=== PATIENT | male | born 1970 | race Caucasian/White ===

== ENCOUNTER 2018-04-27 | Inpatient (IN) | payer OTHER ==
[~2018-04-27] MED LIST: ADVAIR 250/501 EA INH; VENTOLIN0.09 MG/AC IH
--- NOTE | ~2018-04-27 | EKG ---
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
--- NOTE | ~2018-04-27 | EKG ---
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
--- NOTE | ~2018-04-27 | PR ---
[place], [place] PROGRESS NOTE NAME: MARY STEIN UNIT #: [id number] ROOM: [facility] DOCTOR: RASHARD ROMEO MD BIRTHDATE: [birth year] DOS: 04/29/2018 CARDIOLOGY PROGRESS NOTE SUBJECTIVE: The patient was seen today 04/29/2018 in the Cardiology Department just prior to A stress test. He is a 47-year-old man who presented to the hospital with lightheadedness, syncope and chest pain. In the hospital, his electrocardiograms have shown no acute changes, but he does have a transient minimal elevation in troponin. He currently feels well. PHYSICAL EXAMINATION: VITAL SIGNS: Today, his pulse is 70 and regular, blood pressure 120/78. He is afebrile. NECK: Supple. He has no jugular distention. Carotids are full. LUNGS: Respirations are unlabored. His chest is clear to auscultation and percussion. He has no presacral edema or chest wall tenderness. HEART: Has a regular rhythm with a soft S4 gallop, but no S3 or murmur. The PMI is not displaced. There is no precordial heave, lift or thrill. ABDOMEN: Soft and normally active. EXTREMITIES: Showed no edema. IMPRESSION: 1. Atypical chest pain with syncope, most likely this was a vasovagal event. 2. Hypotension, possibly due to poor oral intake and dehydration. This has apparently resolved. 3. Minimal elevation in troponin, most likely due to a type 2 myocardial injury from hypotension. PLAN: We will complete the patient's workup today with an exercise stress test and myocardial perfusion imaging. If that looks good, then no further testing will be required. I thank the hospitalist physicians for asking our advice regarding his care. [place], [place] PROGRESS NOTE NAME: MARY STEIN UNIT #: [id number] ROOM: [facility] DOCTOR: RASHARD ROMEO MD BIRTHDATE: [birth year] RASHARD ROMEO MD CM:PNTRANS [id number] RASHARD ROMEO MD 04/30/18 0338 interface
--- NOTE | ~2018-04-27 | EKG ---
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
--- NOTE | ~2018-04-27 | CON ---
[place], [place] REPORT OF CONSULTATION NAME: MARY STEIN UNIT #: [id number] ROOM: [facility] DOCTOR: RASHARD ROMEO MD BIRTHDATE: [birth year] DOS: 04/28/2018 CARDIOLOGY CONSULTATION CHIEF COMPLAINT: Chest discomfort and syncope. HISTORY OF PRESENT ILLNESS: The patient is a 47-year-old man who reportedly does have a history of high functioning autism. He is a very poor historian. He states that he has had allergy problems in the past including swelling of his tongue. He has also had lightheadedness and syncope in the past. He is not sure if he has ever had a heart problem, but he thinks that he might have had a heart problem a few years ago. He cannot give me any details of this. For the past few days, he has felt poorly. He states that he has not been eating and he has not been sleeping well. He has had constant sneezing and he has had a headache. Yesterday while he was at work at the [employer] he felt lightheaded. He was able to get a ride home with his brother and [id number]. While there, he began to feel a pressure-like pain in the left side of his chest and epigastrium. He then felt lightheaded and passed out. His [id number] stated that he was in and out of consciousness a few times. He did feel his heart was beating erratically and he did feel sweaty. He also complained of a deep nonradiating epigastric pain, which he states was from hunger. Because of these symptoms, he was brought to the Emergency Room and admitted. PAST MEDICAL HISTORY: Includes: 1. High functioning autism. 2. Long-term and ongoing tobacco abuse. 3. Tonsillectomy. 4. Seasonal allergies. FAMILY HISTORY: The patient is unaware of his father's health. His mother is alive at age 67 and lives in [place]. REVIEW OF SYSTEMS: The patient denies diplopia or loss of vision. He has been lightheaded recently. He denies fevers, chills or sweats. He denies any recent weight change. He states that he has been eating poorly lately. He denies nausea or vomiting. He denies hemoptysis or hematemesis. He denies change in bowel or bladder habits. He denies blood in his stools or urine. He denies orthopnea or PND. He denies any peripheral edema. He denies any history of blood clots. He denies heat or cold intolerance. He denies polyuria or polydipsia. He denies any new skin rashes. Remainder of the review of systems is negative except as noted above. MEDICATIONS PRIOR TO ADMISSION: Advair Diskus inhaled daily and albuterol by metered dose inhaler p.r.n. ALLERGIES: LISTS AN ALLERGY TO SHRIMP, WHICH CAUSES SWELLING. SOCIAL HISTORY: The patient lives alone. He does have a cat in the house. He [place], [place] REPORT OF CONSULTATION NAME: MARY STEIN UNIT #: [id number] ROOM: [facility] DOCTOR: RASHARD ROMEO MD BIRTHDATE: [birth year] smokes a pack of cigarettes a day and consumes marijuana on a daily basis. Please note that his urine drug screen was positive for marijuana and amphetamines. He felt that perhaps the marijuana that he had received was laced with amphetamines because he denies taking them on his own. PHYSICAL EXAMINATION: GENERAL: The patient is a slender white male who is awake, alert and oriented. VITAL SIGNS: Pulse is 92 and regular, blood pressure is 104/66. He is afebrile. He weighs 70.4 kilograms and has a body mass index of 28.4. HEENT: Normocephalic and atraumatic. Extraocular muscles are intact. Sclerae are clear. Pupils equal, round and react to light. The oral mucosa is moist. Tongue is midline. NECK: Supple. He has no jugular distention. Carotids are full. There are no bruits. He has no neck or supraclavicular masses, no thyromegaly. LUNGS: Respirations are unlabored. His chest is clear to auscultation and percussion. He has no presacral edema or chest wall tenderness. CARDIOVASCULAR: His heart has a regular rhythm. He has a fourth heart sound, but no third heart sound or murmur. The PMI is not displaced. He has no precordial heave, lift or thrill. ABDOMEN: Soft and normally active without masses, organomegaly or bruits. EXTREMITIES: Showed no edema. Peripheral pulses are easily palpated in the feet. He does have good hair growth on his feet. I reviewed his electrocardiogram and it showed sinus tachycardia, but was otherwise normal tracing. Chest x-ray showed no acute changes with normal cardiac silhouette. Hemoglobin is 15.1, white count on admission was 20,700 and on repeat was 10,900, platelet count was 300,000. Troponin levels were minimally elevated and have fallen back to normal ranges. The peak troponin was 0.115. Sodium is 138, potassium 4.0, chloride 106, CO2 23, BUN 9, creatinine 1.02. IMPRESSION: 1. Syncope preceded by upper respiratory infection symptoms and abdominal pain along with poor oral intake. Most likely this represents a vasovagal event. 2. Hypotension, possibly due to poor oral intake, dehydration, etc. 3. Minimal elevation in troponin, most likely a type 2 myocardial injury from hypotension. PLAN: The patient has been hydrated and is currently feeling well. We will continue to follow serial enzymes and check an echocardiogram for wall motion. If he looks fine overnight, we will plan an exercise myocardial perfusion study for the next 24 hours. We will check orthostatic vital signs in the meantime. Further recommendations depend upon the results of his echo and stress test. I thank the hospitalist physicians for asking our advice regarding his care. [place], [place] REPORT OF CONSULTATION NAME: MARY STEIN UNIT #: [id number] ROOM: [facility] DOCTOR: RASHARD ROMEO MD BIRTHDATE: [birth year] RASHARD ROMEO MD CM:CONSTR:REPORT OF CONSULTATION 9 04/29/18699 interface
[2018-04-27 18:10] VITALS: BP 170/103
[2018-04-27 18:20] VITALS: BP 148/82
[2018-04-27 18:30] VITALS: BP 133/79
[2018-04-27 18:32] LABS: BASO # 0.1 10*3/uL (0.0-0.1); BASO % 0.3 % (0.0-1.0); EOS # 0.1 10*3/uL (0.0-0.4); EOS % 0.3 % (1.0-4.0); HEMATOCRIT 46.3 % (42.0-52.0); HEMOGLOBIN 16.7 g/dl (14.0-18.0); LYMPH # 3.2 10*3/uL (1.3-4.4); LYMPH % 15.3 % (27.0-41.0); MEAN CELL VOLUME 87.4 fl (80.0-94.0); MEAN CORPUSCULAR HGB 31.5 pg (27.0-31.0); MEAN CORPUSCULAR HGB CONC 36.1 g/dl (33.0-37.0); MEAN PLATELET VOLUME 9.7 fl (9.6-12.3); MONO # 1.4 10*3/uL (0.1-1.0); MONO % 6.6 % (3.0-9.0); NEUT # 15.9 10*3/uL (2.3-7.9); NEUT % 76.9 % (47.0-73.0); PLATELET COUNT AUTOMATED 411 10*3/uL (130-400); RED CELL DISTRI WIDTH 11.9 % (0-14.5); WHITE BLOOD COUNT 20.7 10*3/uL (4.8-10.8)
[2018-04-27 18:42] LABS: ACT PARTIAL THROMBO TIME 23.1 SECONDS (20.8-31.5)
[2018-04-27 18:48] LABS: ALBUMIN 4.4 gm/dl (3.1-4.5); ALKALINE PHOSPHATASE 136 U/L (45-117); BUN 12 mg/dl (7-24); CHLORIDE 99 mmol/L (98-107); CREATININE 1.59 mg/dL (0.70-1.30); POTASSIUM 2.8 mmol/L (3.5-5.1); SGOT/AST 28 IU/L (3-35); SGPT/ALT 32 U/L (12-78); SODIUM 137 mmol/L (136-145); TOTAL PROTEIN 8.2 gm/dL (6.4-8.2)
[2018-04-27 18:51] LABS: ETHYL ALCOHOL < 3.0 mg/dl (<3); TROPONIN I < 0.015 ng/ml (<0.045)
[2018-04-27 19:08] VITALS: BP 148/76
[2018-04-27 19:51] VITALS: BP 144/84
[2018-04-27 20:06] LABS: URINE AMPHETAMINES > 1000 (1000ng/ml); URINE BARBITURATES < 200 (200ng/ml); URINE BENZODIAZEPINES < 200 (200ng/ml); URINE CANNABINOIDS (THC) > 50 (50ng/ml); URINE COCAINE < 300 (300ng/ml); URINE METHADONE < 300 (300ng/ml); URINE OPIATES < 300 (300ng/ml)
[2018-04-27 20:12] LABS: URINE PHENCYCLIDINE < 25 (25ng/ml)
[2018-04-27 20:35] VITALS: BP 117/82
[2018-04-28 01:21] LABS: BILIRUBIN NEGATIVE (NEGATIVE); BLOOD NEGATIVE (NEGATIVE); CLARITY CLEAR (CLEAR); COLOR YELLOW (YELLOW); GLUCOSE NEGATIVE (NEGATIVE); KETONE NEGATIVE (NEGATIVE); LEUKO ESTERASE NEGATIVE (NEGATIVE); NITRITE NEGATIVE (NEGATIVE); PH 7.5 (5.0-9.0); UROBILINOGEN 0.2 E.U./dl (0.2-1.0)
[2018-04-28 01:28] LABS: RBC 0-2 rbc/hpf (0-2); WBC 0-2 wbc/hpf (0-5)
[2018-04-28 01:37] VITALS: BP 121/89
[2018-04-28 04:00] VITALS: BP 117/77
[2018-04-28 06:03] LABS: ALBUMIN 3.5 gm/dl (3.1-4.5); ALKALINE PHOSPHATASE 113 U/L (45-117); BUN 9 mg/dl (7-24); CHLORIDE 106 mmol/L (98-107); CHOLESTEROL 125 mg/dL (<200); CREATININE 1.02 mg/dL (0.70-1.30); PHOSPHOROUS 2.9 mg/dL (2.5-4.9); SGOT/AST 26 IU/L (3-35); SGPT/ALT 30 U/L (12-78); SODIUM 138 mmol/L (136-145); TOTAL PROTEIN 7.1 gm/dL (6.4-8.2); TRIGLYCERIDES 59 mg/dl (<150); TROPONIN I 0.036 ng/ml (<0.045); VLDL CHOLESTEROL 12 mg/dL (6-40)
[2018-04-28 06:09] LABS: BASO % 0.3 % (0.0-1.0); EOS # 0.1 10*3/uL (0.0-0.4); EOS % 1.2 % (1.0-4.0); HEMATOCRIT 43.2 % (42.0-52.0); HEMOGLOBIN 15.1 g/dl (14.0-18.0); LYMPH # 2.5 10*3/uL (1.3-4.4); LYMPH % 22.6 % (27.0-41.0); MEAN CELL VOLUME 88.3 fl (80.0-94.0); MEAN CORPUSCULAR HGB 30.9 pg (27.0-31.0); MONO # 0.8 10*3/uL (0.1-1.0); MONO % 7.1 % (3.0-9.0); NEUT # 7.5 10*3/uL (2.3-7.9); NEUT % 68.5 % (47.0-73.0); PLATELET COUNT AUTOMATED 300 10*3/uL (130-400); RED BLOOD COUNT 4.89 10*6/uL (4.50-5.90); WHITE BLOOD COUNT 10.9 10*3/uL (4.8-10.8)
[2018-04-28 06:11] LABS: HDL CHOLESTEROL 34 mg/dl (40-60); LDL CHOLESTEROL 79 mg/dL (9-159)
[2018-04-28 08:00] VITALS: BP 104/66
[2018-04-28 12:00] VITALS: BP 104/74
[2018-04-28 16:00] VITALS: BP 120/69
[2018-04-28 20:00] VITALS: BP 109/78
[2018-04-29] VITALS: BP 110/76
[2018-04-29 04:00] VITALS: BP 108/68
[2018-04-29 05:49] LABS: ALBUMIN 3.3 gm/dl (3.1-4.5); ALKALINE PHOSPHATASE 97 U/L (45-117); BUN 12 mg/dl (7-24); CHLORIDE 110 mmol/L (98-107); CREATININE 1.07 mg/dL (0.70-1.30); PHOSPHOROUS 3.9 mg/dL (2.5-4.9); POTASSIUM 4.4 mmol/L (3.5-5.1); SGOT/AST 22 IU/L (3-35); SGPT/ALT 27 U/L (12-78); SODIUM 143 mmol/L (136-145); TOTAL PROTEIN 6.5 gm/dL (6.4-8.2)
[2018-04-29 06:04] LABS: BASO % 0.5 % (0.0-1.0); EOS # 0.2 10*3/uL (0.0-0.4); EOS % 2.6 % (1.0-4.0); HEMATOCRIT 42.5 % (42.0-52.0); HEMOGLOBIN 14.7 g/dl (14.0-18.0); LYMPH # 2.9 10*3/uL (1.3-4.4); LYMPH % 38.4 % (27.0-41.0); MEAN CORPUSCULAR HGB CONC 34.6 g/dl (33.0-37.0); MEAN PLATELET VOLUME 10.3 fl (9.6-12.3); MONO # 0.6 10*3/uL (0.1-1.0); MONO % 7.3 % (3.0-9.0); NEUT # 3.9 10*3/uL (2.3-7.9); NEUT % 50.9 % (47.0-73.0); PLATELET COUNT AUTOMATED 271 10*3/uL (130-400); RED CELL DISTRI WIDTH 12.2 % (0-14.5); WHITE BLOOD COUNT 7.6 10*3/uL (4.8-10.8)
[2018-04-29 06:06] LABS: MEAN CELL VOLUME 92.4 fl (80.0-94.0)
[2018-04-29 08:00] VITALS: BP 118/80
[2018-04-29 12:00] VITALS: BP 120/78
[2018-04-29 16:00] VITALS: BP 106/71
[2018-04-29] MEDS ORDERED: D3-20002000 UNIT PO (16:08)
== END 2018-04-29 17:37 | disposition home or self-care (01) | DRG 682 ==
PROVIDERS: Emergency Medicine; Internal Medicine; Internal Medicine Nephrology; ADMIT Internal Medicine
PROC: 3E073KZ Introduction of Other Diagnostic Substance into Coronary Artery, Percutaneous Approach (ICD-10-PCS; principal; 2018-04-29)
PROC: 4A02XM4 Measurement of Cardiac Total Activity, External Approach (ICD-10-PCS; principal; 2018-04-29)
DX: N17.0 Acute kidney failure with tubular necrosis (principal); R65.11 Systemic inflammatory response syndrome (SIRS) of non-infectious origin with acute organ dysfunction; E87.2 Acidosis; F84.0 Autistic disorder; I24.8 Other forms of acute ischemic heart disease; E86.0 Dehydration; F15.10 Other stimulant abuse, uncomplicated; J06.9 Acute upper respiratory infection, unspecified; I95.9 Hypotension, unspecified; R10.9 Unspecified abdominal pain; R55 Syncope and collapse; E87.6 Hypokalemia; E83.41 Hypermagnesemia; R03.0 Elevated blood-pressure reading, without diagnosis of hypertension; F12.10 Cannabis abuse, uncomplicated; F17.210 Nicotine dependence, cigarettes, uncomplicated; I25.9 Chronic ischemic heart disease, unspecified; Z91.013 Allergy to seafood; Z82.49 Family history of ischemic heart disease and other diseases of the circulatory system; Z83.3 Family history of diabetes mellitus

== ENCOUNTER 2023-08-08 02:00 | Emergency (ER) | payer SELFPAY ==
[~2023-08-08] VITALS: Ht 165.1 cm; Wt 65.8 kg
[~2023-08-08 02:00] MED LIST changes: +D3-20002000 UNIT PO
[2023-08-08] MEDS ORDERED: Midazolam Hydrochloride 5 MG/ML VIAL INH ONE (02:10)
[2023-08-08 02:26] LABS: BASO % 0.2 % (0.0-1.0); EOS % 0.1 % (1.0-4.0); HEMATOCRIT 41.9 % (42.0-52.0); LYMPH # 1.3 10*3/uL (1.3-4.4); LYMPH % 9.3 % (27.0-41.0); MEAN CELL VOLUME 87.1 fl (80.0-94.0); MEAN CORPUSCULAR HGB 31.2 pg (27.0-31.0); MEAN CORPUSCULAR HGB CONC 35.8 g/dl (33.0-37.0); MEAN PLATELET VOLUME 9.7 fl (9.6-12.3); MONO # 0.7 10*3/uL (0.1-1.0); MONO % 4.7 % (3.0-9.0); NEUT # 12.2 10*3/uL (2.3-7.9); NEUT % 85.3 % (47.0-73.0); PLATELET COUNT AUTOMATED 384 10*3/uL (130-400); RED BLOOD COUNT 4.81 10*6/uL (4.50-5.90); RED CELL DISTRI WIDTH 11.8 % (0-14.5); WHITE BLOOD COUNT 14.2 10*3/uL (4.8-10.8)
[2023-08-08 03:01] LABS: ALKALINE PHOSPHATASE 111 U/L (46-116); BUN 12 mg/dl (9-23); CHLORIDE 103 mmol/L (98-107); POTASSIUM 3.2 mmol/L (3.4-5.1); SGPT/ALT 51 U/L (5-49); TOTAL PROTEIN 7.4 gm/dL (6.0-8.0)
[2023-08-08 03:02] LABS: BILIRUBIN Negative (Negative); BLOOD Negative (Negative); CLARITY Cloudy (Clear); COLOR Dark Yellow (Yellow); GLUCOSE Negative (Negative); KETONE Trace (Negative); LEUKO ESTERASE Negative (Negative); NITRITE Negative (Negative); SPECIFIC GRAVITY >= 1.030 (1.001-1.030)
[2023-08-08 03:03] LABS: ETHYL ALCOHOL < 3.0 mg/dl (<3)
[2023-08-08 03:10] LABS: URINE AMPHETAMINES Positive (1000ng/ml); URINE BARBITURATES Negative (200ng/ml); URINE BENZODIAZEPINES Positive (200ng/ml); URINE CANNABINOIDS (THC) Positive (50ng/ml); URINE COCAINE Negative (300ng/ml); URINE METHADONE Negative (300ng/ml); URINE OPIATES Negative (300ng/ml); URINE PHENCYCLIDINE Negative (25ng/ml)
[2023-08-08 03:18] LABS: WBC 0-2 wbc/hpf (0-5)
[2023-08-08] MEDS ORDERED: Haloperidol Lactate 5 MG/ML AMP IM ONE (12:55)
== END 2023-08-08 14:51 | disposition home or self-care (01) ==
LOC: ED 02:00
PROVIDERS: Emergency Medicine; Student in an Organized Health Care Education/Training Program
DX: F22 Delusional disorders (principal); E87.6 Hypokalemia; F15.10 Other stimulant abuse, uncomplicated; I10 Essential (primary) hypertension; E83.41 Hypermagnesemia; I25.2 Old myocardial infarction; J45.909 Unspecified asthma, uncomplicated; M10.9 Gout, unspecified; F41.9 Anxiety disorder, unspecified; Z91.013 Allergy to seafood; F17.200 Nicotine dependence, unspecified, uncomplicated; Z90.89 Acquired absence of other organs; F12.10 Cannabis abuse, uncomplicated

== ENCOUNTER 2023-08-27 18:37 | Emergency (ER) | payer OTHER ==
[2023-08-27] MEDS ORDERED: Naloxone Hydrochloride 2 MG/2 ML SYR ONE (18:49)
[2023-08-27 19:08] LABS: BASO % 0.2 % (0.0-1.0); EOS % 0.1 % (1.0-4.0); HEMATOCRIT 43.3 % (42.0-52.0); LYMPH # 1.3 10*3/uL (1.3-4.4); MEAN CELL VOLUME 85.7 fl (80.0-94.0); MEAN CORPUSCULAR HGB 31.1 pg (27.0-31.0); MEAN CORPUSCULAR HGB CONC 36.3 g/dl (33.0-37.0); MEAN PLATELET VOLUME 9.6 fl (9.6-12.3); MONO # 0.7 10*3/uL (0.1-1.0); MONO % 4.3 % (3.0-9.0); PLATELET COUNT AUTOMATED 515 10*3/uL (130-400); RED BLOOD COUNT 5.05 10*6/uL (4.50-5.90); RED CELL DISTRI WIDTH 11.6 % (0-14.5); WHITE BLOOD COUNT 16.2 10*3/uL (4.8-10.8)
[2023-08-27 19:17] LABS: ACT PARTIAL THROMBO TIME 27.3 SECONDS (20.0-32.1)
[2023-08-27 19:36] LABS: ALKALINE PHOSPHATASE 142 U/L (46-116); BUN 12 mg/dl (9-23); CHLORIDE 104 mmol/L (98-107); LIPASE 34 U/L (12-53); POTASSIUM 3.6 mmol/L (3.4-5.1); SGPT/ALT 23 U/L (5-49); TOTAL PROTEIN 7.8 gm/dL (6.0-8.0)
[2023-08-27 19:37] LABS: ETHYL ALCOHOL < 3.0 mg/dl (<3)
[2023-08-27] MEDS ORDERED: LORazepam 2 MG/ML VIAL IV ONE (19:40)
[2023-08-27] MEDS ORDERED: LORazepam 2 MG/ML VIAL ONE (19:47)
[2023-08-27 23:41] LABS: BILIRUBIN Negative (Negative); BLOOD Negative (Negative); CLARITY Clear (Clear); COLOR Dark Yellow (Yellow); GLUCOSE Negative (Negative); KETONE 1+ (Negative); LEUKO ESTERASE Negative (Negative); NITRITE Negative (Negative); PH 5.5 (4.5-8.0)
[2023-08-27 23:48] LABS: URINE AMPHETAMINES Positive (1000ng/ml); URINE BARBITURATES Negative (200ng/ml); URINE BENZODIAZEPINES Negative (200ng/ml); URINE CANNABINOIDS (THC) Positive (50ng/ml); URINE COCAINE Negative (300ng/ml); URINE METHADONE Negative (300ng/ml); URINE OPIATES Negative (300ng/ml); URINE PHENCYCLIDINE Negative (25ng/ml)
[2023-08-27 23:59] LABS: BACTERIA TRACE
== END 2023-08-28 16:37 | disposition short-term general hospital (02) ==
LOC: ED 18:37
PROVIDERS: Internal Medicine
DX: F43.21 Adjustment disorder with depressed mood (principal); F15.10 Other stimulant abuse, uncomplicated; F84.0 Autistic disorder; F17.200 Nicotine dependence, unspecified, uncomplicated; Z91.013 Allergy to seafood; Z79.899 Other long term (current) drug therapy; Z90.89 Acquired absence of other organs